=== PATIENT | female | born 1960 | race Two or more races ===

== ENCOUNTER 2021-07-02 13:24 | Emergency (ER) | payer MEDICARE, OTHER, SELFPAY ==
[~2021-07-02] VITALS: Ht 144.8 cm; Wt 67.1 kg
--- NOTE | 2021-07-02 14:23 | NUR ---
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
[2021-07-02 14:57] LABS: BASOPHILS % (AUTO) 1 % (0-1); EOSINOPHILS % (AUTO) 0 % (1-7); LYMPHOCYTES % (AUTO) 41 % (22-44); MEAN CORPUSCULAR HEMOGLOBIN 32.1 pg (27.0-34.8); MEAN CORPUSCULAR HGB CONC 34.4 g/dL (32.4-35.8); MEAN PLATELET VOLUME 7.9 fL (7.4-10.4); MONOCYTES % (AUTO) 7 % (2-9); NEUTROPHILS % (AUTO) 51 % (42-75); PLATELET COUNT 265 x10^3/uL (130-400); RED BLOOD COUNT 4.35 x10^6/uL (3.82-5.3)
[2021-07-02 15:10] LABS: ALBUMIN 3.8 g/dL (3.4-5.0); ANION GAP 10 mmol/L (5-15); CALCIUM 8.9 mg/dL (8.5-10.1); CHLORIDE 106 mmol/L (98-107); CREATININE 0.75 mg/dL (0.55-1.02)
[2021-07-02] MEDS ORDERED: OMNIPAQUE 350 MG/ML, 100ML BOTTLE ONE (15:45)
[2021-07-02] MEDS ORDERED: METF500T17 PO (17:44)
[2021-07-02] MEDS ORDERED: LISI2.5T PO (17:45)
[2021-07-02] MEDS ORDERED: ATOR-2 PO (17:45)
[2021-07-02] MEDS ORDERED: INSU100V8 SQ (17:46)
[2021-07-02] MEDS ORDERED: LEVO125T5 PO (17:46)
[2021-07-02] MEDS ORDERED: TRULICITY (17:46)
--- NOTE | 2021-07-02 17:50 | NUR ---
PT AMBULATED TO BATHROOM. NO ACUTE DISTRESS. WILL CONTINUE TO MONITOR.
--- NOTE | 2021-07-02 17:56 | NUR ---
PT HAS BEEN UPDATED BY DR KAUFMAN. PT TO GO TO IR. [place] AT BEDSIDE. VS STABLE. NO ACUTE DISTRESS NOTED. WILL CONTINUE TO MONITOR.
[2021-07-02] MEDS ORDERED: LIDOCAINE 1%, 10ML ONE (18:00)
--- NOTE | 2021-07-02 18:42 | NUR ---
PT WENT TO IR
[2021-07-02 19:13] VITALS: BP 123/72
--- NOTE | 2021-07-02 19:14 | NUR ---
PT BACK FROM IR. PT RESTING IN ROOM. VS STABLE. FAMILY AT BEDSIDE. CALL LIGHT IN PLACE. WILL CONTINUE TO MONITOR.
== END 2021-07-02 19:35 | disposition home or self-care (01) ==
LOC: ED 15:47
DX: M54.2 Cervicalgia (principal); E07.9 Disorder of thyroid, unspecified
CPT/HCPCS: 10030; 36415; 70491; 75989; 76942; 80048; 82040; 85025; 99285; J3490; Q9967